=== PATIENT | female | born 1995 | race Hispanic/Latino ===

== ENCOUNTER 2021-06-30 15:49 | Outpatient (CLI) | payer OTHER ==
[~2021-06-30] VITALS: Ht 149.9 cm; Wt 67.8 kg
[2021-06-30 16:24] VITALS: BP 99/57
[2021-06-30] MEDS ORDERED: PRENTAB9 PO (16:36)
[2021-06-30] MEDS ORDERED: ASPI81CH33 PO (16:36)
[2021-06-30] MEDS ORDERED: LR 1,000 ML IV ONE (17:20)
[2021-06-30] MEDS ORDERED: BETAMETHASONE SOLUSPAN 6MG/ML 5ML VIAL (J0702 PER 3MG) IM SCH (17:50)
[2021-06-30 18:23] VITALS: BP 101/63
[2021-06-30 19:11] VITALS: BP 109/66
[2021-06-30] MEDS ORDERED: hydrOXYzine 50 MG TAB PO ONE (19:20)
--- NOTE | 2021-06-30 20:47 | IPNPDOC ---
Obstetrical Progress Note Date of Service Jun 30, 2021 Subjective 26 yo @ 34W5D presents c/o contractions 4 hrs after intercourse. reports contractions has gotten together and they are about 4/10. she presents becoz they was not resolved after a fewhours. denies any vaginal bleeing, loss of fluids or decreased movements. FHT 140, MOD SARA,+ACCELS, -Decels-- reactive NST sve: 1-2/t/h, unchanged after 2 hrs of observation. A/P 26 yo @ 34W5D presents c/o contractions 4 hrs after intercourse. Hemodynamically stable. no cervical change after 2 hrs, but since initial exam was 2 cm, atient was given first dose of betamethasone and will return for 2nd dose tomorrow at 6am. patient was given vistaril for contraction pain, which improved. she was given strict return precautions and discharged home. f/u in clinic as previously scheduled. Objective Vital Signs Date Time Temp Pulse Resp B/P (MAP) Pulse Ox O2 Delivery O2 Flow Rate FiO2 06/30/21 19:11 98.4 84 16 109/66 (80) 98 Room Air AUGUSTUS BETTENCOURT MD Jun 30, 2021 8:47 pm
== END 2021-06-30 19:53 | disposition home or self-care (01) ==
LOC: M LDO 15:49
PROVIDERS: ATTEND Obstetrics & Gynecology
DX: O60.03 Preterm labor without delivery, third trimester (principal); Z3A.34 34 weeks gestation of pregnancy
CPT/HCPCS: 59025; 96360; 96361; 96372; G0378; G0463; J0702

== ENCOUNTER 2021-07-01 18:19 | Outpatient (CLI) | payer OTHER ==
[~2021-07-01] VITALS: Ht 149.9 cm; Wt 69.4 kg
[~2021-07-01 18:19] MED LIST: ASPI81CH33 PO; PRENTAB9 PO
[2021-07-01] MEDS ORDERED: BETAMETHASONE SOLUSPAN 6MG/ML 5ML VIAL (J0702 PER 3MG) IM STA (18:26)
--- NOTE | 2021-07-01 18:32 | IPNPDOC ---
Obstetrical Progress Note Date of Service Jul 01, 2021 Subjective 26 yo @ 34W6D presents for second dose of betamethasone. Pt initially presented over the weekend c/o contractions 4 hrs after intercourse. SVE was noted to be 2/T/H and unchanged after 2hr recheck, however due to SVE being 2cm with contractions, decision made to provide course of steroids. She is without complaint today, denies any further contraction pain. Second dose administered and pt instructed to follow up as scheduled. KYLE MUÑOZ M.D. Jul 01, 2021 18:32
[2021-07-01] MEDS ORDERED: HOME MED LIST COMPLETE! XX SCH (18:35)
== END 2021-07-01 18:40 | disposition home or self-care (01) ==
LOC: M LDO 18:19
PROVIDERS: ATTEND Obstetrics & Gynecology
DX: O60.03 Preterm labor without delivery, third trimester (principal); Z3A.34 34 weeks gestation of pregnancy
CPT/HCPCS: 59025; 96372; G0378; G0463; J0702

== ENCOUNTER → 2021-07-05 | Outpatient (CLI) | payer OTHER ==
--- NOTE | 2021-07-05 13:53 | REP ---
INDICATION: PREG, GROWTH-GEST DIABETES COMPARISON: None. TECHNIQUE: Transabdominal obstetrical ultrasound with color Doppler evaluation. FINDINGS: Examination demonstrates a single live intrauterine in cephalic presentation. motion is identified by technologist. Placenta is noted posterior and grade 1 without evidence for placenta previa or abruption. Amniotic fluid volume is normal. Cervix measures 5.1 cm in length and appears closed.. Selected gestational age: 35 weeks 3 days with ADITHYA 08/06/2021. Gestational age by current measurements 35 weeks 2 days with ADITHYA 08/07/2021. FHR equals 150 beats per minute. BPD: 8.5 cm at 34 weeks 2 days HC: 31.9 cm at 35 weeks 6 days AC: 32.3 cm at 36 weeks 2 days FL: 6.7 cm at 34 weeks 3 days HL: 6.1 cm at 35 weeks 2 days HC/AC: 0.99 Estimated weight 2699 grams (61stpercentile). BEVERLEY: 8.3 cm (7.8-24.9) Umbilical artery SD ratio: 1.91 (1.66-3.56) IMPRESSION: Single live advanced gestation in cephalic presentation demonstrating appropriate estimated weight and growth. <Electronically signed by Luther Patel > 07/05/21 [id number]
== END ==
LOC: M RAD 12:40
PROVIDERS: ATTEND Registered Nurse
DX: Z36.89 Encounter for other specified antenatal screening (principal); O24.419 Gestational diabetes mellitus in pregnancy, unspecified control; Z3A.35 35 weeks gestation of pregnancy

== ENCOUNTER 2021-07-26 05:11 | Outpatient (CLI) | payer OTHER ==
[2021-07-26 05:31] VITALS: BP 110/73
--- NOTE | 2021-07-26 07:40 | IPNPDOC ---
Text Note Date of Service The patient was seen on 07/26/21. NOTE 26 yo at 38+2 weeks gestation presents to L&D with the complaint of contractions. She denies any bleeding or leakage of fluid. She endorses regular movement. Vitals - VSS, afebrile, normotensive, non tachycardic General - AAOX3, laying in bed, NAD Abdomen - Gravid uterus, no fundal tenderness Cervix - 1/50/-3. Exam unchanged >1hr later. FHR tracing - Cat I tracing with moderate variability, +accels, no decels, ctx intermittent. Not in active labor. Reassuring status. Discharged home with return precautions. All questions answered. 30 minutes Andres VS,John, I+O VS, John, I+O Vital Signs Date Time Temp Pulse Resp B/P (MAP) Pulse Ox O2 Delivery O2 Flow Rate FiO2 07/26/21 05:31 98.6 93 18 110/73 (85) AYO FLORES DO Jul 26, 2021 07:40
== END 2021-07-26 07:29 | disposition home or self-care (01) ==
LOC: M LDO 05:11
PROVIDERS: ATTEND Obstetrics & Gynecology
DX: O60.03 Preterm labor without delivery, third trimester (principal); Z3A.38 38 weeks gestation of pregnancy
CPT/HCPCS: 59025; G0378; G0463

== ENCOUNTER 2021-07-28 19:03 | Inpatient (IN) | payer OTHER ==
[~2021-07-28] VITALS: Ht 149.9 cm; Wt 69.9 kg
[2021-07-28] VITALS (18 sets, daily range): BP systolic 86–152; BP diastolic 51–86
[2021-07-28] MEDS ORDERED: LACTATED RINGER'S 1000 ML IV STA (19:44)
[2021-07-28] MEDS ORDERED: OXYTOCIN DRIP 30 UNITS in IV 1 EA IV PRN (19:45)
[2021-07-28] MEDS ORDERED: TRANEXAMIC ACID INJection 1,000 MG in NS 100 ML IV PRN (19:45)
[2021-07-28] MEDS ORDERED: METHYLERGONOVINE MALEATE 0.2 MG/ML VIAL (J2210) IM PRN (19:45)
[2021-07-28] MEDS ORDERED: LIDOCAINE 1% MDV 20ML VIAL INFIL PRN (19:45)
[2021-07-28] MEDS ORDERED: LR 1,000 ML IV SCH (19:45)
[2021-07-28] MEDS ORDERED: HOME MED LIST COMPLETE! XX SCH (20:05)
[2021-07-28] MEDS ORDERED: OXYTOCIN 30 UNITS IN 0.9% NaCl 500ML IV BAG (J2590) As Ordered ONE ×2 (20:12→23:34)
--- NOTE | 2021-07-28 20:16 | HPEPDOC ---
Obstetrical History & Physical General Date of Admission Jul 28, 2021 at 19:31 History of Present Illness 26 yo at 38+5 weeks gestation by LMP of [id number] presented to L&D with regular, painful contractions. She also endorses bloody show. She denies any leakage of fluid. She endorses regular movement. Chief Complaint: Contractions, term Information Provided By: Patient Age: 26 : 3 Term: 1 Pre-term: 1 Abortions: 0 Livin Care Care: Good Care Dating Final EDC: Aug 06, 2021 Final EDC for Daily Update: Aug 06, 2021 Final EDC by: LMP (LMP of [id number] set ADITHYA of [id number]) Antepartum Course Diagnos(e)s History of Pre E Past Medical History Past Obstetrical History : Past Obstetrical History: Multigravida (G1 - at 36 weeks after IOL for Pre E, G2 - at 40 weeks (7lbs, 50z), G3 - current ) Type of Delivery: Spontaneous Vaginal Del. AUDIO VIDEO TECH History: No pertinent history Past Medical History Medical History History of Pre E Surgical History: Denies/None Family History Significant Family History: No pertinent family hx Social History Marital Status: Family situation: Spouse/partner home Psychosocial History: No pertinent psych hx * Smoker: non-smoker Alcohol: Denies Drugs: denies Imunizations Tdap status: current Influenza Status: needs Allergies Coded Allergies: No Known Allergies (Unverified , 06/30/21) Medications Scheduled Aspirin (Aspirin) 81 Mg Tab.chew, 1 TAB PO DAILY for pain No.137/Iron/Folic Acd ( Vitamin Tablet) 1 Each Tablet, 1 TAB PO DAILY Physical Examination Physical Examination GENERAL: Alert and oriented times three. Painfully sylvia. ABDOMEN: Gravid and non-tender to touch. FETUS: Is vertex (VTX) by sterile vaginal examination (SVE), EXTREMITIES: No edema. Vital Signs/I&O Vital Signs Date Time Temp Pulse Resp B/P (MAP) Pulse Ox O2 Delivery O2 Flow Rate FiO2 07/28/21 19:20 99.0 89 19 134/86 (102) Laboratory Data 24H LABS Laboratory Tests 2 07/28/21 19:40: Serology Scanned Report Hepatitis B Testing Urine Culture: No Growth Pertinent Laboratoy Data Blood Type: O+ RBC Antibody Screen: Negative HIV: Negative Hepatitis B: Negative Hepatitis C: Unknown Rapid Plasma Reagin: Nonreactive Rubella: Immune Varicella: Immune Chlamydia/Gonorrhea: Unknown Group B Streptococcus: Negative Quad Screen Test: Unknown (Patient had low risk cff DNA genetic screening) Cystic Fibrosis: Unknown Glucose Tolerance Test: 132 Anatomy Ultrasound Placenta Location: Posterior Normal Anatomy: Yes Placenta Previa: No Steroid Therapy Steroid Therapy: No Vaginal Examination Dilation: 6 cm Effacement: 80% Station: -2 Cervical Consistency: Soft Cervical Position: Middle Presentation: Cephalic presentation Position: Vertex (occiput) Assessment Heart Rate (FHR): 130 Variability: Moderate Accelerations: Positive Decelerations: None Tocometer Contractions: Yes Frequency: regular Strength: palpated as strong Assessment/Plan Assessment 26 yo at 38+5 weeks gestation presented to L&D in active labor. Plan Admit to L&D for expectant management of labor. Will augment as clinically indicated. Apply IV fluids. Labs per L&D protocol. GBS negative. Clear liquid diet. Patient may have epidural if desired. Anticipate . Labor and Delivery Counseling Vaginal / Operative vaginal delivery / C section counseling We will deliver your baby through the vagina with possible assistance of forceps or vacuum device if needed for maternal or indications. Forceps and vacuum are devices that can assist with vaginal delivery when normal pushing efforts cannot achieve delivery on their own or when delivery is needed in an emergency for baby's well-being. Medications may be required to induce or augment (help) your labor in order to achieve a vaginal delivery. An episiotomy may be required to help your baby to delivery vaginally. You may also require repair of any lacerations or tears of your vagina or vulva that are caused by delivery. In some cases, emergencies can occur that require an emergency section delivery so quickly that there may not be enough time to stop and complete consent forms for section. Understand that if this occurs, your providers will discuss the need for a section with you before they proceed with surgery. section is the delivery of your baby through an incision in your abdomen. In some situations, section may be safer to mom and baby than continuing labor and is only performed when clinically indicated. Risks of vaginal delivery include but are not limited to: Bleeding, infection, injury to the vagina, pelvic structures, injury to baby, damage to the uterus, reactions to anesthesia, uterine rupture, risk of hysterectomy for life threatening bleeding, or . Medications used to induce or augment labor may increase your risk for infection, uterine tachysystole, uterine rupture, heart rate abnormalities, need for emergency delivery or possible hysterectomy, and hemorrhage. Additional risks for use of forceps and vacuum include: increased risk of perineal and vaginal lacerations, risk of urinary or bowel incontinence, increased risk of injury to baby with bruising, scratches, hematomas on the head, or intracranial bleeding. Elena appears to understand these risks and elects to proceed with her labor at this location. She also consents to a blood transfusion if necessary. All patient and questions answered. John Campos DO, JOHN GREEN DO Jul 28, 2021 20:16
[2021-07-28 20:22] LABS: HEMATOCRIT 35.3 % (36.0-47.0); HEMOGLOBIN 11.7 g/dl (12.0-15.5); MEAN CORPUSCULAR HEMOGLOBIN 30.2 pg (27.0-33.0); MEAN CORPUSCULAR HGB CONC 33.1 g/dl (32.0-36.5); MEAN CORPUSCULAR VOLUME 91.2 fl (80.0-96.0); PLATELET COUNT, AUTOMATED 200 10^3/uL (150-450); RED BLOOD COUNT 3.87 10^6/uL (4.00-5.40); WHITE BLOOD COUNT 5.2 10^3/uL (4.0-10.0)
[2021-07-28 20:44] LABS: BLOOD UREA NITROGEN 5 MG/DL (7-18); CALCIUM LEVEL 8.4 MG/DL (8.5-10.1); CARBON DIOXIDE LEVEL 24 MEQ/L (21-32); CHLORIDE LEVEL 107 MEQ/L (98-107); CREATININE FOR GFR 0.38 MG/DL (0.55-1.30); GLOMERULAR FILTRATION RATE > 60.0 (>60); GLUCOSE, FASTING 70 MG/DL (70-100); POTASSIUM SERUM 3.7 MEQ/L (3.5-5.1); SODIUM LEVEL 140 MEQ/L (136-145)
[2021-07-28] MEDS ORDERED: FENTANYL 2MCG/ML ROPIVACAINE 0.2% IN 0.9% NACL 100ML IVBAG As Ordered ONE (20:52)
[2021-07-28] MEDS ORDERED: EPIDURAL COMMENT XX SCH (21:40)
[2021-07-28] MEDS ORDERED: ePHEDrine SULFATE 25 MG/5 ML(5MG/ML) SYRINGE IV PRN (21:40)
[2021-07-28] MEDS ORDERED: NALOXONE INJ 0.4MG/1ML VIAL (J2310 PER 1MG) IV PRN (21:40)
[2021-07-28] MEDS ORDERED: diphenhydrAMINE 50MG/ML VIAL (J1200) IV PRN (21:40)
[2021-07-28] MEDS ORDERED: REFRIGERATOR IV KEYS XX PRN (21:40)
[2021-07-28] MEDS ORDERED: LACTATED RINGER'S 1000 ML IV PRN (21:40)
[2021-07-28] MEDS ORDERED: ONDANSETRON 4MG/2ML VIAL IV PRN ×2 (21:40→22:50)
[2021-07-28] MEDS ORDERED: EPIDURAL/PCA KEYS XX PRN (21:40)
[2021-07-28] MEDS ORDERED: FENTANYL/ROPIVACAINE/NACL BAG 100 ML EPIDURAL SCH (21:40)
[2021-07-28] MEDS ORDERED: CALCIUM CARBONATE 500 MG CHEW U/D PO PRN ×2 (22:10)
--- NOTE | 2021-07-28 22:20 | IPNPDOC ---
Text Note Date of Service The patient was seen on 07/28/21. NOTE Patient comfortable with epidural in place. Chaperoned by RN Cervix: /0. AROM performed productive of clear fluid. FHR tracing - Cat I with moderate variability, +accels, no decels. Ctx regular. Patient progressing well. Anticipate beginning of 2nd stage soon. Andres VS,John, I+O VS, John, I+O Laboratory Tests 07/28/21 20:11 Vital Signs Date Time Temp Pulse Resp B/P (MAP) Pulse Ox O2 Delivery O2 Flow Rate FiO2 07/28/21 19:20 99.0 89 19 134/86 (102) AYO FLORES DO Jul 28, 2021 22:20
[2021-07-28] MEDS ORDERED: ACETAMINOPHEN 500 MG TAB PO PRN (22:50)
[2021-07-28] MEDS ORDERED: DIBUCAINE 1% OINTMENT 30GM TOP PRN (22:50)
[2021-07-28] MEDS ORDERED: DOCUSATE SODIUM 100MG CAPSULE PO PRN (22:50)
[2021-07-28] MEDS ORDERED: ACETAMINOPHEN TAB 650MG DOSE (2X325MG) PO PRN (22:50)
[2021-07-28] MEDS ORDERED: RHOGAM 300 MCG (1500 IU) INJ (J2790) IM SCH (22:50)
[2021-07-28] MEDS ORDERED: MEASLES,MUMPS,RUBELLA VACCINE INJ (MMR-II) (90707) SC SCH (22:50)
[2021-07-28] MEDS ORDERED: IBUPROFEN 600MG TAB PO PRN (22:50)
--- NOTE | 2021-07-28 22:56 | DNPDOC ---
[facility] Delivery Note Delivery Note DATE OF DELIVERY: 28Jul2021 at ~2240 PREDELIVERY DIAGNOSIS: 38+5 weeks gestation and active labor POST DELIVERY DIAGNOSIS: Delivered. PROCEDURE: Spontaneous vaginal delivery PER DIEM: Dr. Campos ANESTHESIA: Neuraxial (epidural) ESTIMATED BLOOD LOSS: 200 ml FINDINGS: pending weight, male infant, Score 9/9 DELIVERY SUMMARY: Elena progressed rapidly after AROM into second stage. She started feeling an urge to push and I was called to the room. The bed was broken down and she was prepped for delivery. With excellent effort over about only 5 minutes of pushing her delivered. Presentation was RADHA with restitution to ROT. The left anterior shoulder delivered with gentle traction followed easily by the remainder of the body. The infant was dried and stimulated on the field and a bulb suction was used. The infant was placed on the maternal abdomen and cried vigorously. The three vessel umbilical cord was then clamped and cut by the FOB after appropriate time delay and under my direction. Third stage was completed with gentle traction on on the cord and it was productive of an intact placenta. The uterus was firmed with massage and pitocin was administered IV bolus. Inspection of the cervix, vagina, labia, and perineum revealed no lacerations. The fundus was palpated again and was firm. Sponge, instrument, and needle counts were correct X2. Mother and stable when I left the room. DO MARK Irwin CHRISTOPHER J. DO Jul 28, 2021 22:56
[2021-07-28] MEDS: OXYTOCIN DRIP 30 UNITS in IV 1 EA IV SCH (23:47)
[2021-07-29] VITALS (27 sets, daily range): BP systolic 97–137; BP diastolic 50–86
[2021-07-29] MEDS ORDERED: TRANEXAMIC ACID 100 MG/ML 10ML VIAL As Ordered ONE (00:08)
[2021-07-29] MEDS ORDERED: ceFAZolin SOD 2 GM in IV 1 EA IV ONE ×2 (00:15→00:25)
[2021-07-29] MEDS ORDERED: ceFAZolin SOD 1 GM in D5W MINI-BAG PLUS 50 ML IV SCH (00:17)
[2021-07-29] MEDS ORDERED: ceFAZolin 1GM VIAL (J0690 PER 500MG) As Ordered ONE (00:18)
[2021-07-29] MEDS ORDERED: METHYLERGONOVINE MALEATE 0.2 MG/ML VIAL (J2210) IM ONE (00:20)
[2021-07-29] MEDS ORDERED: TRANEXAMIC ACID INJection 1,000 MG in D5W 100 ML IV ONE (00:20)
--- NOTE | 2021-07-29 01:08 | IPNPDOC ---
Progress Note Date of Service: Jul 29, 2021 Progress Note Called to room for persistent bleeding. Not heavy, but continuous with passage of some clots. Uterine sweep performed with small clots removed. Another bag of pitocin was hung, 1000 mcg ID cytotec was administered, 0.2mg IM methergine was given, and 1000mg of IV TXA was started. A salinas catheter was placed and 300ml of clear urine resulted. A speculum exam was done. The cervix was carefully inspected and there were no bleeding lacerations. A bedside TAUS was performed and the EMS was thin measuring 1.2cm at its thickest dimension. Vaginal packing was placed due to some oozing abrasions but there were no lacerations requiring repair. 2gm Ancef administered due to uterine sweep. hemorrhage was weighed resulting in 229ml. This brings total EBL to 429ml including delivery. Patient remained stable throughout with normal vital signs. Will keep packing in place until the morning and continue to monitor closely. All patient and questions answered. Andres VS, I&O, 24H, John Vital Signs/I&O Vital Signs Date Time Temp Pulse Resp B/P (MAP) Pulse Ox O2 Delivery O2 Flow Rate FiO2 07/29/21 00:18 88 18 122/74 (90) 07/28/21 23:55 98.5 I&O- Last 24 Hours up to 6 AM 07/29/21 06:00 Intake Total 2166 ml Output Total 200 ml Balance 1966 ml Laboratory Data 24H LABS Laboratory Tests 2 07/28/21 19:40: Serology Scanned Report Hepatitis B Testing 07/28/21 20:11: Nucleated Red Blood Cells % (auto) 0.0, Anion Gap 9, Glomerular Filtration Rate > 60.0, Calcium Level 8.4L CBC/BMP Laboratory Tests 07/28/21 20:11 AYO FLORES DO Jul 29, 2021 01:08
[2021-07-29] MEDS: IBUPROFEN 800 MG TAB PO PRN ×3 (02:40→15:07)
[2021-07-29] MEDS: OXYTOCIN DRIP 30 UNITS in IV 1 EA IV SCH (03:40)
--- NOTE | 2021-07-29 07:27 | IPNPDOC ---
Progress Note Date of Service: Jul 29, 2021 Progress Note 26 yo G3 now P3 s/p yesterday evening followed by persistent bleeding requiring treatment with multiple uterotonics and TXA. She also received Ancef 2gms for a uterine sweep. Vaginal packing was placed in addition to a salinas catheter. No acute events since. Elena reports feeling well this AM. She has been able to rest. She denies feeling any bleeding. Chaperoned by RN Vitals - Temp of 100.4 at ~0430. Normotensive, non tachycardic. General - laying in bed, NAD Abdomen - Fundus firm at U-1. No fundal tenderness. Pelvic - Vaginal packing removed intact. No further bleeding. - salinas catheter in place draining clear urine Elean remains stable. Will ambulate today and remove salinas catheter. Note made of elevated temp. Will continue to monitor closely. Continue routine care. All questions answered. Andres VS, I&O, 24H, John Vital Signs/I&O Vital Signs Date Time Temp Pulse Resp B/P (MAP) Pulse Ox O2 Delivery O2 Flow Rate FiO2 07/29/21 06:00 98.5 76 16 109/69 (82) 97 Room Air I&O- Last 24 Hours up to 6 AM 07/29/21 06:00 Intake Total 2396 ml Output Total 1950 ml Balance 446 ml Laboratory Data 24H LABS Laboratory Tests 2 07/28/21 19:40: Serology Scanned Report Hepatitis B Testing 07/28/21 20:11: Nucleated Red Blood Cells % (auto) 0.0, Anion Gap 9, Glomerular Filtration Rate > 60.0, Calcium Level 8.4L CBC/BMP Laboratory Tests 07/28/21 20:11 AYO FLORES DO Jul 29, 2021 07:27
[2021-07-29] MEDS: PRENATAL VITAMINS CHEWABLE TABLET PO SCH (09:00)
[2021-07-29] MEDS ORDERED: CARBOPROST TROMETHAMINE 250 MCG/ML AMP ONE (22:58)
[2021-07-29] MEDS ORDERED: METHYLERGONOVINE MALEATE 0.2 MG/ML VIAL (J2210) ONE (22:58)
[2021-07-30 01:55] VITALS: BP 113/69
--- NOTE | 2021-07-30 03:58 | IPNPDOC ---
Progress Note Date of Service: Jul 30, 2021 Progress Note SUBJECT: Ms. Porter is a 26yo PPD2 after a vaginal delivery, male infant, Score 9/9, no lacerations. She did have uterine atony requiring uterotonics, TXA and received 2g of ancef; EBL 429cc. She has been ambulating, voiding spontaneously without issue and tolerating regular diet. Reports lochia is less than a normal period. Patient is ambulating well. She has decided not to breastfeed. Denies any pain. Voiding and passing flatus without difficulty. OBJECTIVE: VITAL SIGNS: Within normal limits, afebrile. Alert and oriented times three. No increased WOB Heart rate: non-tachy Abdomen: Fundus firm at U-2. Soft, NTTP. [Minimal] lochia per pt ASSESSMENT: Ms. Porter is a 26yo PPD2 after a vaginal delivery, male , Score 9/9, no lacerations. She did have uterine atony requiring uterotonics, TXA and received 2g of ancef; EBL 429cc. Vitals within normal limits, afebrile, hemodynamically stable with no evidence of infection. PLAN: 1. Discharge to home today. 2. Tylenol and Motrin for pain. 3. Encourage breast feeding and ambulation. 4. Plans on mirena for contraception. 5. Routine PP visit in 6 weeks in clinic. 6. Discussed return precautions at length and activity limitations (pelvic rest). VS, I&O, 24H, Fishbone Vital Signs/I&O Vital Signs Date Time Temp Pulse Resp B/P (MAP) Pulse Ox O2 Delivery O2 Flow Rate FiO2 07/30/21 01:55 98.0 68 16 113/69 (84) 96 Room Air I&O- Last 24 Hours up to 6 AM 07/30/21 06:00 Output Total 1100 ml Balance -1100 ml Laboratory Data 24H LABS Laboratory Tests 2 07/29/21 08:13: ANSHU GONZALES DO Jul 30, 2021 03:58
--- NOTE | 2021-07-30 04:00 | OBDS ---
[facility] Obstetrical Discharge Sum. A/P, Post Course List any complications Ms. Porter is a 26yo PPD2 after a vaginal delivery, male infant, Score 9/9, no lacerations. She did have uterine atony requiring uterotonics, TXA and received 2g of ancef; EBL 429cc. She has been ambulating, voiding spontaneously without issue and tolerating regular diet. Reports lochia is less than a normal period. Patient is ambulating well. She has decided not to breastfeed. Denies any pain. Voiding and passing flatus without difficulty. Denies any pain. Voiding and passing flatus without difficulty. Vitals within normal limits, afebrile, hemodynamically stable with no evidence of infection. PLAN: 1. Discharge to home today. 2. Tylenol and Motrin for pain. 3. Encourage breast feeding and ambulation. 4. Plans on mirena for contraception. 5. Routine PP visit in 6 weeks in clinic. 6. Discussed return precautions at length and activity limitations (pelvic rest). ANSHU GONZALES DO Jul 30, 2021 04:00
[2021-07-30 05:41] VITALS: BP 110/69
[2021-07-30] MEDS: PRENATAL VITAMINS CHEWABLE TABLET PO SCH (09:45)
[2021-07-30 10:00] VITALS: BP 115/78
== END 2021-07-30 13:30 | disposition home or self-care (01) | DRG 807 ==
LOC: M LDO 19:03 → M LDI 19:31 → M OBS 07-29 04:34
PROVIDERS: ADMIT Obstetrics & Gynecology; ATTEND Obstetrics & Gynecology
PROC: 10E0XZZ Delivery of Products of Conception, External Approach (ICD-10-PCS; principal; 2021-07-28)
PROC: 10907ZC Drainage of Amniotic Fluid, Therapeutic from Products of Conception, Via Natural or Artificial Opening (ICD-10-PCS; 2021-07-28)
DX: O72.1 Other immediate postpartum hemorrhage (principal); Z37.0 Single live birth; Z3A.38 38 weeks gestation of pregnancy